=== PATIENT | male | born 1995 | race Hispanic/Latino ===

== ENCOUNTER 2017-08-23 20:50 | Emergency (ER) | payer BC, MEDICAID | END 2017-08-23 22:20 | disposition home or self-care (01) | LOC: SCSER 20:50 | DX: J10.1 Influenza due to other identified influenza virus with other respiratory manifestations (principal) | CPT/HCPCS: 99283 ==

== ENCOUNTER 2019-01-01 12:01 | Emergency (ER) | payer BC ==
--- NOTE | 2019-01-01 12:18 | RAD ---
EXAM: XR Ankle Rt 3 View STANDARD PROVIDED CLINICAL HISTORY: Pain FINDINGS: There is no evidence for fracture or other acute osseous abnormality. Alignment appears anatomic. Rochelle nt spaces appear preserved. IMPRESSION: No evidence for an acute osseous abnormality. If there is persistent clinical concern, conservative m anagement and follow-up imaging advised.
[2019-01-01] MEDS ORDERED: Ibuprofen 800 MG TAB ONE (12:35)
== END 2019-01-01 12:32 | disposition home or self-care (01) ==
LOC: ERS 12:01
DX: S93.401A Sprain of unspecified ligament of right ankle, initial encounter (principal); X50.9XXA Other and unspecified overexertion or strenuous movements or postures, initial encounter